=== PATIENT | male | born 1970 | race Caucasian/White ===

== ENCOUNTER 2018-08-11 09:13 | Emergency (ER) | payer OTHER ==
[~2018-08-11] VITALS: Ht 177.8 cm; Wt 122.7 kg
[2018-08-11] MEDS ORDERED: PRINIVIL20 MG PO (10:29)
[2018-08-11] MEDS ORDERED: GLUCOPHAGE500 MG/TAB PO (10:29)
[2018-08-11] MEDS ORDERED: XARELTO20 MG PO (10:30)
[2018-08-11] MEDS ORDERED: ZOLOFT 25MG25 MG PO (10:30)
[2018-08-11] MEDS ORDERED: AMLODIPINE (10:31)
[2018-08-11] MEDS ORDERED: TAMIFLU 75MG75 MG PO (11:42)
[2018-08-11 11:53] VITALS: BP 131/67; PULSE 83; TEMP 100.4
== END 2018-08-11 12:01 | disposition home or self-care (01) ==
LOC: COL.ER 09:13
DX: J11.1 Influenza due to unidentified influenza virus with other respiratory manifestations (principal); E11.9 Type 2 diabetes mellitus without complications; I10 Essential (primary) hypertension; I48.91 Unspecified atrial fibrillation; Z79.84 Long term (current) use of oral hypoglycemic drugs; Z88.0 Allergy status to penicillin; Z88.6 Allergy status to analgesic agent